=== PATIENT | female | born 1960 | race Caucasian/White ===

== ENCOUNTER → 2022-10-19 | Outpatient (CLI) | payer BC ==
--- NOTE | 2022-10-19 13:36 | XR ---
EXAMINATION TYPE: XR cervical spine comp DATE OF EXAM: 10/19/2022 TECHNIQUE: Frontal, lateral, oblique, and open mouth view of the cervical spine are obtained. HISTORY: H53.462 COMPARISON: None FINDINGS: The cervical spine is visualized in its entirety from C1 thru the top of T1 level, it is s traightened in alignment without evidence of acute fracture or dislocation. The pre-vertebral soft t issue appears within normal limits. The C1-C2 articulation is within normal limits on the open mouth view. Vertebral body heights are maintained. Moderate to advanced disc space narrowing with endplate sclerosis at C6-C7 level. Mild disc space narrowing C4-C5 level. Mild to Moderate disc space narrow ing at C5-C6 level. The oblique images are within normal limits. Overlying soft tissue is unremarkabl e. IMPRESSION: As above.
== END | disposition home or self-care (01) ==
LOC: RADXRMAIN 13:08
PROVIDERS: ATTEND Family Medicine
DX: M50.321 Other cervical disc degeneration at C4-C5 level (principal); R20.2 Paresthesia of skin
CPT/HCPCS: 72050

== ENCOUNTER → 2023-04-02 | Outpatient (CLI) | payer BC ==
--- NOTE | 2023-04-04 21:27 | MR ---
EXAMINATION TYPE: MR cervical spine wo con DATE OF EXAM: 04/02/2023 8:02 PM CLINICAL INDICATION:Female, 63 years old with history of M50.321 M50.322 M50.323; PHH, Neck pain an d numbness that radiates down right arm. COMPARISON: 10/28/2016. TECHNIQUE: Multi planar, multi sequence imaging was performed utilizing: T1-weighted, T2-weighted, an d turbo inversion recovery imaging of the cervical spine. IV Contrast: (none if empty) FINDINGS: Alignment: The cervical vertebral bodies have preserved heights. Alignment is within normal limits gi rony patient positioning. Bones: Scattered Modic endplate changes with osteophytes and disc space narrowing. Multilevel degener ative disc disease is noted and most pronounced at the C5-C7 vertebral levels. Cord: The spinal cord is unremarkable with regards to their signal intensity and morphology. Discs: Multilevel disc desiccation is present. C2-C3: No significant disc pathology. The spinal canal is patent. Bilateral facet and uncovertebral joint arthropathy are present with mild bilateral neural foraminal stenosis. C3-C4: A disc osteophyte complex is present which minimally narrows the ventral subarachnoid space. Bilateral facet and uncovertebral joint arthropathy are present with moderate right and moderate sev ere left neural foraminal stenosis. C4-C5: No significant disc pathology. The spinal canal is patent. Bilateral facet and uncovertebral joint arthropathy are present with mild to moderate right and moderate left neural foraminal stenosis . C5-C6: No significant disc pathology. The spinal canal is patent. Bilateral facet and uncovertebral joint arthropathy are present with moderate bilateral neural foraminal stenosis. C6-C7: A disc osteophyte complex is present with moderate spinal canal stenosis. Bilateral facet and uncovertebral joint arthropathy are present with moderate to severe bilateral neural foraminal steno sis. C7-T1: No significant disc pathology. The spinal canal is patent. No neural foraminal stenosis. Other: None. IMPRESSION: C6-C7 moderate spinal canal and moderate to severe bilateral neural foraminal stenosis. Cord signal i s maintained.
--- NOTE | 2023-04-05 10:01 | MR ---
EXAMINATION TYPE: MR cervical spine wo con DATE OF EXAM: 04/02/2023 8:02 PM CLINICAL INDICATION:Female, 63 years old with history of M50.321 M50.322 M50.323; PHH, Neck pain and numbness that radiates down right arm. COMPARISON: Radiographs 10/19/2022. TECHNIQUE: Multi planar, multi sequence imaging was performed utilizing: T1- weighted, T2-weighted, and turbo inversion recovery imaging of the cervical spine. IV Contrast: cc (none if empty) FINDINGS: Alignment: The cervical vertebral bodies have preserved heights. Alignment is within normal limits given patient positioning. Bones: Scattered Modic endplate changes with osteophytes and disc space narrowing. Multilevel degenerative disc disease is noted and most pronounced at the C5-C7 vertebral levels. Cord: The spinal cord is unremarkable with regards to their signal intensity and morphology. Discs: Multilevel disc desiccation is present. C2-C3: No significant disc pathology. The spinal canal is patent. No neural foraminal stenosis. C3-C4: No significant disc pathology. The spinal canal is patent. No neural foraminal stenosis. C4-C5: No significant disc pathology. The spinal canal is patent. Bilateral facet and uncovertebral joint arthropathy are present with mild right neural foraminal stenosis. The left neural foramen is patent. C5-C6: No significant disc pathology. The spinal canal is patent. Bilateral facet and uncovertebral joint arthropathy are present with mild bilateral neural foraminal stenosis. C6-C7: A disc osteophyte complex is present with mild spinal canal stenosis. Bilateral facet and uncovertebral joint arthropathy are present with mild bilateral neural foraminal stenosis. C7-T1: No significant disc pathology. The spinal canal is patent. No neural foraminal stenosis. Other: None. IMPRESSION: C6-C7 mild to moderate spinal canal stenosis. Mild bilateral neural foraminal stenosis also at this level. MTDD
== END | disposition home or self-care (01) ==
LOC: RADMRIMAIN 19:25
PROVIDERS: ATTEND Family Medicine
DX: M50.121 Cervical disc disorder at C4-C5 level with radiculopathy (principal); M50.122 Cervical disc disorder at C5-C6 level with radiculopathy; M50.123 Cervical disc disorder at C6-C7 level with radiculopathy; M48.02 Spinal stenosis, cervical region; M99.71 Connective tissue and disc stenosis of intervertebral foramina of cervical region
CPT/HCPCS: 72141

== ENCOUNTER → 2023-07-07 | Outpatient (CLI) | payer BC ==
[2023-07-07 14:35] VITALS: BP 169/102; PULSE 74; RESP 16; TEMP 98.2
--- NOTE | 2023-07-07 14:36 | P.PAINPG ---
PQRS Measure Charge Sheet Comment: HISTORY OF PRESENT ILLNESS: A 63yr old female as a referral from Dr Jenkins presents today w severe and chronic neck pain x 2 yrs secondary to stenosis, DDD, spondylosis and facet arthropathy without myelopathy for evaluation. Pt states pain level is provoked at 6 /10 in intensity, constant, localized in the lower cervical spine, predominantly axial, crushing in character w occasional shooting pain towards the RUE. Pain is provoked by hyperextension. Pain is alleviated by PT x 6 wks in Dec 2022, chiropractic treatments semi monthly x 3 mo which ended in Dec 2022, physician guided home exercise/ stretching regimen daily since Dec 2022, ice, medications (Mobic, Aleve), repositioning and rest. Cervical disability score at 23. PMH: OA, Anxiety, Hyperlipidemia PSH: Denies SH: Negative x3 FH: Non contributory All: See list Meds: See list REVIEW OF ORGAN SYSTEMS: CONSTITUTIONAL: No fevers or chills. No recent weight loss. NEUROLOGICAL: + numbness and tingling along the distal extremities. No seizure disorders or headaches. MUSCULOSKELETAL: + pain PSYCHIATRIC: Denies current depression or suicidal thoughts. Physical Examinations : Constitutional : Cooperative , not in acute distress . Neurologic : Cranial nerve II to XII intact. No focal neurological deficits. Psychiatric : alert & oriented x 3. Matching mood & appropriate affect. Judgment & insight intact. Musculoskeletal : Cervical Spine Motor strength in the deltoid and biceps: Normal right side. Normal Left side Motor strength biceps and the wrist extensors: Normal right side . Normal left side Motor strength in the triceps muscle: Normal right side. Normal left side Deep tendon reflexes: Normal at the biceps. Normal at Brachioradialis. Normal at triceps Vertebral body tenderness to deep palpation over C6 Cervical facet loading test: positive bilaterally Spurling test: positive bilaterally Neck distraction test: positive bilaterally Waleska sign: positive bilaterally Lumbar spine Motor strength lower extremities ,thigh and legs 5/5 Right side , 5/5 Left side Deep tendon reflexes : Normal Knee Jerk. Normal Ankle Jerk Vertebral body tenderness over Erwin Test positive Lumbar facet Loading Test: positive Right / positive Left Range of motion of the lumbar spine Flexion 30 degrees, extension 10 degrees Straight Leg Raise test: Left/ Right positive at degrees Israel test: positive right / positive left. Severe tenderness over the Sacroiliac joint on the Right / Left sides Gaenslen test: positive bilaterally Seated flexion test: positive bilaterally. Sacral spine : Severe tenderness over the Sacroiliac joint: right side / left side Range of motion: Flexion of the lumbar spine <60 degrees Range of motion: Extension of the lumbar spine <20 degrees Gaenslen's Test positive Israel test: positive right side / left side Thigh Thrust Test Sacral Thrust Test Imaging: MRI noncontrast of the cervical spine from 04/05/23 reviewed Assessment/ Plan : Cervical stenosis Recommendation of FRACISCO C6C7 #1. May need a series of injections for optimal pain relief. Risks, benefits of procedure discussed and patient verbalized understanding. Admits to anti- coagulant use or medical history of diabetes. Protocol for discontinuation/ continuation of medications felix procedure discussed. Minimal anesthesia provided, if clinically indicated, consisting of Versed and Fentanyl. All questions answered. I have spent greater than 30 minutes on patient care today. Dr Nicholson was available by phone for the evaluation of this patient. The time was used to review the medical records including relevant urine studies and Prescription history (MAPs), review of the available imaging, evaluation and examination of the patient, coordination of care with the medical staff and if applicable referring physicians, as well as creation of the medical record Home Medications: Ambulatory Orders Atorvastatin [Lipitor] 80 mg PO DAILY 07/07/23 Meloxicam [Mobic] 15 mg PO 07/07/23 diazePAM [Valium] 5 mg PO DAILY PRN 1 Days #2 tab 07/07/23 Controlled Substance Measures - Controlled Substance Measures Is patient prescribed a controlled substance at discharge?: No
== END ==
LOC: PNWHC3 13:23
PROVIDERS: ATTEND Specialist
DX: M50.323 Other cervical disc degeneration at C6-C7 level (principal); M48.03 Spinal stenosis, cervicothoracic region; M25.511 Pain in right shoulder; R20.2 Paresthesia of skin; M19.90 Unspecified osteoarthritis, unspecified site; F41.9 Anxiety disorder, unspecified; E78.5 Hyperlipidemia, unspecified
CPT/HCPCS: 99211

== ENCOUNTER 2023-08-03 12:41 | Day surgery (SDC) | payer BC ==
[2023-08-03 14:04] VITALS: TEMP 98.1
[2023-08-03] MEDS ORDERED: DEXAMETHASONE SOD PHOSPHATE 10 MG/ML 1 ML VIAL ONE (14:49)
[2023-08-03] MEDS ORDERED: IOPAMIDOL M200 10 ML VIAL ONE (14:49)
[2023-08-03] MEDS ORDERED: diphenhydrAMINE 25 MG CAP PO STA (15:06)
[2023-08-03 15:11] VITALS: RESP 20
[2023-08-03 15:43] VITALS: BP 160/93
[2023-08-03 15:44] VITALS: PULSE 75
--- NOTE | 2023-08-04 10:32 | P.PCN ---
Date of Procedure: 08/03/23 Procedure(s) Performed: . PROCEDURE 1. Cervical epidural steroid injection under fluoroscopic guidance, C6-7 (fluoroscopy images available in the radiology department ) 2. Cervical epidurogram. PREOPERATIVE DIAGNOSIS: 1- Cervical Degenerative Disc Diseases 2- Cervical radiculopathy., 3-cervical spondylosis with cervical Facet arthropathy without myelopathy.4-cervical spinal stenosis POSTOPERATIVE DIAGNOSIS: : 1- Cervical Degenerative Disc Diseases , 2- Cervical radiculopathy. 3-,cervical spondylosis with cervical Facet arthropathy without myelopathy. 4-cervical spinal stenosis ANESTHESIA: Local anesthesia with lidocaine 1% 3 ml only EBL 0 PROCEDURE INDICATION: The patient with neck pain and radiculitis unresponsive to conservative treatment consents for procedure. PROCEDURE DESCRIPTION / TECHNIQUE: The patient was seen and identified in the preoperative area. Risks, benefits, complications, including but not limited to infections ,bleeding , allergic reactions to the medications ,and not complete pain releife, and alternatives were discussed with the patient, the patient agreed to proceed with the procedure and signed the consent. Patient was taken to the OR and time out was completed. The patient was placed in the prone position on the procedure table. A pillow w as placed under the patients chest to increase the cervical interlaminar space. The cervical area was prepped and draped in the usual sterile fashion. Vital signs were closely monitored during the procedure. Using anterior-posterior fluoroscopy, the C6-7 interlaminar space was identified and the skin over this site was marked and then infiltrated with 1% lidocaine subcutaneously. Subsequently, a 20-gauge 3-1/2-inch Tuohy epidural needle was inserted and advanced toward the epidural space by means of the ``hanging-drop technique and guided by AP and lateral fluoroscopy. The correct needle position in the epidural space was verified with the injection of 2 mL of the water soluble contrast dye Isovue-200 and observing an excellent epidurogram with the epidural spread of the dye, after negative aspiration for blood and CSF and in the absence of paresthesias. then, mixture containing 20 mg Dexamethasone and 2 ml of preservative-free normal saline injected and a washout of epidurogram was seen. Needle was withdrawn intact, skin was cleansed, and bandages were applied. Complications= none. Disposition= patient was placed in supine position and transferred to the recovery room area in stable condition and there was no evidence of upper or lower extremity motor or sensory deficit after the procedure patient was discharged from recovery room after discharge criteria met and home discharge instructions was given by the staff and patient will follow with the pain clinic in 2-4 weeks
--- NOTE | 2023-08-04 12:11 | FL ---
EXAMINATION TYPE: FL guided pain mgmt statistic DATE OF EXAM: 08/03/2023 FLUOROSCOPY Fluoroscopy time of 3.4 seconds was used during cervical epidural steroid injection. 2 image/s docum ent/s the procedure. [id number] Gycm2 DAP
== END 2023-08-03 15:35 | disposition home or self-care (01) ==
LOC: ORPAIN 12:41
PROVIDERS: ATTEND Specialist
DX: M50.123 Cervical disc disorder at C6-C7 level with radiculopathy (principal); M47.22 Other spondylosis with radiculopathy, cervical region; M48.02 Spinal stenosis, cervical region
CPT/HCPCS: 62321

== ENCOUNTER → 2023-08-25 | Outpatient (CLI) | payer BC ==
--- NOTE | 2023-08-25 14:34 | P.PAINPG ---
PQRS Measure Charge Sheet Comment: HISTORY OF PRESENT ILLNESS: A 63 yr old female presents today w severe and chronic neck pain x 2 yrs secondary to stenosis, DDD, spondylosis and facet arthropathy without myelopathy for evaluation s/p MAL C6C7 #1. Pt states she experienced 60 % pain relief x 3 wks s/p procedure. Pt states pain level is provoked at 6 /10 in intensity, constant, localized in the lower cervical spine, predominantly axial, crushing in character w occasional shooting pain towards the RUE. Pain is provoked by hyperextension. Pain is alleviated by PT x 6 wks in Dec 2022, chiropractic treatments semi monthly x 3 mo which ended in Dec 2022, physician guided home exercise/ stretching regimen daily since Dec 2022, ice, medications, repositioning and rest. Cervical disability score at 21. Interventional procedures include MAL C6C7 x1 Medications include Mobic, Aleve REVIEW OF ORGAN SYSTEMS: CONSTITUTIONAL: No fevers or chills. No recent weight loss. NEUROLOGICAL: + numbness and tingling along the distal extremities. No seizure disorders or headaches. MUSCULOSKELETAL: + pain PSYCHIATRIC: Denies current depression or suicidal thoughts. Physical Examinations : Constitutional : Cooperative , not in acute distress . Neurologic : Cranial nerve II to XII intact. No focal neurological deficits. Psychiatric : alert & oriented x 3. Matching mood & appropriate affect. Judgment & insight intact. Musculoskeletal : Cervical Spine Motor strength in the deltoid and biceps: Normal right side. Normal Left side Motor strength biceps and the wrist extensors: Normal right side . Normal left side Motor strength in the triceps muscle: Normal right side. Normal left side Deep tendon reflexes: Normal at the biceps. Normal at Brachioradialis. Normal at triceps Vertebral body tenderness to deep palpation over C6 Cervical facet loading test: positive bilaterally Spurling test: positive bilaterally over C6-C7 BL R> L Neck distraction test: positive bilaterally Waleska sign: positive bilaterally Lumbar spine Motor strength lower extremities ,thigh and legs 5/5 Right side , 5/5 Left side Deep tendon reflexes : Normal Knee Jerk. Normal Ankle Jerk Vertebral body tenderness over Erwin Test positive Lumbar facet Loading Test: positive Right / positive Left Range of motion of the lumbar spine Flexion 30 degrees, extension 10 degrees Straight Leg Raise test: Left/ Right positive at degrees Israel test: positive right / positive left. Severe tenderness over the Sacroiliac joint on the Right / Left sides Gaenslen test: positive bilaterally Seated flexion test: positive bilaterally. Sacral spine : Severe tenderness over the Sacroiliac joint: right side / left side Range of motion: Flexion of the lumbar spine <60 degrees Range of motion: Extension of the lumbar spine <20 degrees Gaenslen's Test positive Israel test: positive right side / left side Thigh Thrust Test Sacral Thrust Test Imaging: MRI noncontrast of the cervical spine from 04/05/23 reviewed Assessment/ Plan : Cervical stenosis Recommendation of MAL C6-C7 #2. May need a series of injections for optimal pain relief. Risks, benefits of procedure discussed and patient verbalized understanding. Admits to anti- coagulant use or medical history of diabetes. Protocol for discontinuation/ continuation of medications felix procedure discuss ed. Minimal anesthesia provided, if clinically indicated, consisting of Versed and Fentanyl. All questions answered. I have spent greater than 30 minutes on patient care today. Dr Nicholson was available by phone for the evaluation of this patient. The time was used to review the medical records including relevant urine studies and Prescription history (MAPs), review of the available imaging, evaluation and examination of the patient, coordination of care with the medical staff and if applicable referring physicians, as well as creation of the medical record PQRS Narrative: Hx Alcohol Use (MH) Yes Home Medications: Ambulatory Orders Atorvastatin [Lipitor] 80 mg PO DAILY 07/07/23 Meloxicam [Mobic] 15 mg PO DAILY 07/07/23 diazePAM [Valium] 5 mg PO DAILY PRN 1 Days #2 tab 07/07/23 Controlled Substance Measures - Controlled Substance Measures Is patient prescribed a controlled substance at discharge?: No
[2023-08-25 15:05] VITALS: BP 153/90; PULSE 99; RESP 15; TEMP 97.6
== END ==
LOC: PNWHC3 13:51
PROVIDERS: ATTEND Specialist
DX: M48.02 Spinal stenosis, cervical region (principal)
CPT/HCPCS: 99211

== ENCOUNTER 2023-09-30 12:45 | Day surgery (SDC) | payer BC ==
[2023-09-28 13:51] VITALS: BMI 23.3
[~2023-09-30 12:45] MED LIST: LACTATED RINGERS 1,000 ML IV SCH
[2023-09-30 13:40] VITALS: RESP 16; TEMP 97
[2023-09-30] MEDS ORDERED: DEXAMETHASONE SOD PHOSPHATE 10 MG/ML 1 ML VIAL ONE (14:26)
[2023-09-30] MEDS ORDERED: IOPAMIDOL M200 10 ML VIAL ONE (14:26)
--- NOTE | 2023-09-30 14:32 | P.PCN ---
Date of Procedure: 09/30/23 Procedure(s) Performed: PROCEDURE 1. Cervical epidural steroid injection under fluoroscopic guidance, C6-7 (fluoroscopy images available in the radiology department ) 2. Cervical epidurogram. PREOPERATIVE DIAGNOSIS: 1- Cervical Degenerative Disc Diseases 2- Cervical radiculopathy., 3-cervical spondylosis with cervical Facet arthropathy without myelopathy.4-cervical spinal stenosis POSTOPERATIVE DIAGNOSIS: : 1- Cervical Degenerative Disc Diseases , 2- Cervical radiculopathy. 3-,cervical spondylosis with cervical Facet arthropathy without myelopathy. 4-cervical spinal stenosis ANESTHESIA: Local anesthesia with lidocaine 1% 3 ml only EBL 0 PROCEDURE INDICATION: The patient with neck pain and radiculitis unresponsive to conservative treatment consents for procedure. PROCEDURE DESCRIPTION / TECHNIQUE: The patient was seen and identified in the preoperative area. Risks, benefits, complications, including but not limited to infections ,bleeding , allergic reactions to the medications ,and not complete pain releife, and alternatives were discussed with the patient, the patient agreed to proceed with the procedure and signed the consent. Patient was taken to the OR and time out was completed. The patient was placed in the prone position on the procedure table. A pillow was placed under the patients chest to increase the cervical interlaminar space. The cervical area was prepped and draped in the usual sterile fashion. Vital signs were closely monitored during the procedure. Using anterior-posterior fluoroscopy, the C6-7 interlaminar space was identified and the skin over this site was marked and then infiltrated with 1% lidocaine subcutaneously. Subsequently, a 20-gauge 3-1/2-inch Tuohy epidural needle was inserted and advanced toward the epidural space by means of the ``hanging-drop technique and guided by AP and lateral fluoroscopy. The correct needle position in the epidural space was verified with the injection of 2 mL of the water soluble contrast dye Isovue-200 and observing an excellent epidurogram with the epidural spread of the dye, after negative aspiration for blood and CSF and in the absence of paresthesias. then, mixture containing 20 mg Dexamethasone and 2 ml of preservative-free normal saline injected and a washout of epidurogram was seen. Needle was withdrawn intact, skin was cleansed, and bandages were applied. Complications= none. Disposition= patient was placed in supine position and transferred to the recovery room area in stable condition and there was no evidence of upper or lower extremity motor or sensory deficit after the procedure patient was discharged from recovery room after discharge criteria met and home discharge instructions was given by the staff and patient will follow with the pain clinic in 2-4 weeks
--- NOTE | 2023-09-30 15:01 | FL ---
Fluoroscopy History: FRACISCO fracisco 4 sec DAP .[id number] mGym2
[2023-09-30 15:03] VITALS: BP 113/69; PULSE 79
== END 2023-09-30 15:06 | disposition home or self-care (01) ==
LOC: ORPAIN 12:45
PROVIDERS: ATTEND Specialist
DX: M50.123 Cervical disc disorder at C6-C7 level with radiculopathy (principal); M47.22 Other spondylosis with radiculopathy, cervical region; M48.02 Spinal stenosis, cervical region
CPT/HCPCS: 62321; J1100; Q9966

== ENCOUNTER → 2023-10-20 | Outpatient (CLI) | payer BC ==
--- NOTE | 2023-10-20 13:39 | P.PAINPG ---
PQRS Measure Charge Sheet Comment: HISTORY OF PRESENT ILLNESS: A 63 yr old female presents today w severe and chronic neck pain x 2 yrs secondary to stenosis, DDD, spondylosis and facet arthropathy without myelopathy for evaluation s/p MAL C6C7 #2. Pt states she experienced % pain relief x 3 wks s/p procedure. Pt states pain level is provoked at 7 /10 in intensity, constant, localized in the lower cervical spine, predominantly axial, pulling in character w occasional shooting pain towards the RUE. Pain is provoked by hyperextension. Pain is alleviated by PT x 6 wks in Dec 2022, chiropractic treatments semi monthly x 3 mo which ended in Dec 2022, physician guided home exercise/ stretching regimen daily since Dec 2022, ice, medications, repositioning and rest. Cervical disability score at 21. Interventional procedures include MAL C6C7 x2 Medications include Mobic, Aleve REVIEW OF ORGAN SYSTEMS: CONSTITUTIONAL: No fevers or chills. No recent weight loss. NEUROLOGICAL: + numbness and tingling along the distal extremities. No seizure disorders or headaches. MUSCULOSKELETAL: + pain PSYCHIATRIC: Denies current depression or suicidal thoughts. Physical Examinations : Constitutional : Cooperative , not in acute distress . Neurologic : Cranial nerve II to XII intact. No focal neurological deficits. Psychiatric : alert & oriented x 3. Matching mood & appropriate affect. Judgment & insight intact. Musculoskeletal : Cervical Spine Motor strength in the deltoid and biceps: Normal right side. Normal Left side Motor strength biceps and the wrist extensors: Normal right side . Normal left side Motor strength in the triceps muscle: Normal right side. Normal left side Deep tendon reflexes: Normal at the biceps. Normal at Brachioradialis. Normal at triceps Vertebral body tenderness to deep palpation Cervical facet loading test: positive R C4-C5, C5-C6 Spurling test: positive bilaterally over Neck distraction test: positive bilaterally Waleska sign: positive bilaterally Lumbar spine Motor strength lower extremities ,thigh and legs 5/5 Right side , 5/5 Left side Deep tendon reflexes : Normal Knee Jerk. Normal Ankle Jerk Vertebral body tenderness over Erwin Test positive Lumbar facet Loading Test: positive Right / positive Left Range of motion of the lumbar spine Flexion 30 degrees, extension 10 degrees Straight Leg Raise test: Left/ Right positive at degrees Israel test: positive right / positive left. Severe tenderness over the Sacroiliac joint on the Right / Left sides Gaenslen test: positive bilaterally Seated flexion test: positive bilaterally. Sacral spine : Severe tenderness over the Sacroiliac joint: right side / left side Range of motion: Flexion of the lumbar spine <60 degrees Range of motion: Extension of the lumbar spine <20 degrees Gaenslen's Test positive Israel test: positive right side / left side Thigh Thrust Test Sacral Thrust Test Imaging: MRI noncontrast of the cervical spine from 04/05/23 reviewed Assessment/ Plan : Cervical stenosis Recommendation of R MBB C4-C6 #1. May need a series of injections, up until RFA, for optimal pain relief. Risks, benefits of procedure discussed and pat ient verbalized understanding. Admits to anti- coagulant use or medical history of diabetes. Protocol for discontinuation/ continuation of medications felix procedure discussed. Minimal anesthesia provided, if clinically indicated, consisting of Versed and Fentanyl. All questions answered. I have spent greater than 30 minutes on patient care today. Dr Nicholson was available by phone for the evaluation of this patient. The time was used to review the medical records including relevant urine studies and Prescription history (MAPs), review of the available imaging, evaluation and examination of the patient, coordination of care with the medical staff and if applicable referring physicians, as well as creation of the medical record PQRS Narrative: Hx Alcohol Use (MH) Yes Home Medications: Ambulatory Orders Atorvastatin [Lipitor] 80 mg PO DAILY 07/07/23 Meloxicam [Mobic] 15 mg PO DAILY 07/07/23 diazePAM [Valium] 5 mg PO DAILY PRN 1 Days #2 tab 09/22/23 Controlled Substance Measures - Controlled Substance Measures Is patient prescribed a controlled substance at discharge?: No
[2023-10-20 14:17] VITALS: BP 147/91; PULSE 88; RESP 16; TEMP 97.8
== END ==
LOC: PNWHC3 12:41
PROVIDERS: ATTEND Specialist
DX: M48.02 Spinal stenosis, cervical region (principal); M50.321 Other cervical disc degeneration at C4-C5 level; M50.322 Other cervical disc degeneration at C5-C6 level; G89.29 Other chronic pain; M47.812 Spondylosis without myelopathy or radiculopathy, cervical region
CPT/HCPCS: 99211

== ENCOUNTER 2023-11-12 09:38 | Day surgery (SDC) | payer BC ==
[2023-11-12] MEDS: LACTATED RINGERS 1,000 ML IV SCH (09:51)
[2023-11-12 10:04] VITALS: RESP 18; TEMP 98.3
[2023-11-12] MEDS ORDERED: fentaNYL (PF) 50 MCG/ML 2 ML AMP ONE (10:08)
[2023-11-12] MEDS ORDERED: MIDAZOLAM 2 MG/2 ML VIAL ONE (10:08)
[2023-11-12] MEDS ORDERED: ROPIVACAINE 5MG/ML 20ML VIAL ONE (10:16)
--- NOTE | 2023-11-12 10:25 | P.PCN ---
Date of Procedure: 11/12/23 Procedure(s) Performed: PREOPERATIVE DIAGNOSIS: 1-Cervical Spondylosis with Facet Arthropathy.without myelopathy. 2-cervical degenerative disc disease POSTOPERATIVE DIAGNOSIS:1-cervical spondylosis with facet arthropathy without myelopathy. 2-cervical degenerative disc disease PROCEDURES: Diagnostic Right C4 , C5 , and C6 medial branch blocks, with fluoroscopic guidance (fluoroscopy images available in radiology department ) ( to target the facet joint at Right C4- 5 , C5- 6 )#1st ANESTHESIA: Monitored anesthesia care as per anesthesia department ,moderate sedation with Versed 2 mg , and fentanyl 50 micrograms EBL: Minimal PROCEDURE INDICATION: The patient with neck pain secondary to cervical arthropathy unresponsive to more conservative treatments. PROCEDURE DESCRIPTION / TECHNIQUE: The patient was seen and identified in the preoperative area. Risks, benefits, complications, and alternatives were discussed with the patient, the patient agreed to proceed with the procedure and signed the consent. IV was started. Vital signs remained stable throughout the procedure. Patient was taken to the OR and time out was completed. The patient was placed in the Lateral position on the procedure table. The cervical area was prepped and draped in the usual sterile fashion. Critical pause was taken. Vital signs were closely monitored during the procedure. Conscious sedation was used during the procedure to decrease patients anxiety. Using cross-table lateral fluoroscopy, the centroid of the trapezoid of right C4 , C5 and C6, was identified, marked, and localized with 1% lidocaine 1 ml at each level for skin and Sub Q infiltrations . Subsequently, a 22 G 3 spinal needle was advanced guided by fluoroscopy to the centroid of the trapezoid of Right C4 , C5, C6 . Hobart tip position was confirmed at the centroid of the trapezoids of Right C4 , C5 ,C6 with anteroposterior fluoroscopy. Subsequently, 2 ml of preservative-free Ropivacaine 0.5% and half ml of the was injected after negative aspiration for blood and CSF. Hobart was then rem giacomo intact . COMPLICATIONS: No acute complications. DISPOSITION / PLANS: The patient was placed in a supine position and transferred to the recovery area in a stable condition for observation and was discharged from the recovery room after meeting discharge criteria. Home discharge instructions given to the patient by the staff. The patient was reexamined prior to discharge. The patient will schedule a follow up in the clinic in 2-4 weeks.
[2023-11-12] MEDS: IV FLUID CONTINUATION 800 ML IV ONE (10:26)
[2023-11-12 11:02] VITALS: BP 130/71; PULSE 78
--- NOTE | 2023-11-12 11:17 | FL ---
EXAMINATION TYPE: FL guided pain mgmt statistic Intraoperative/procedural fluoroscopic services were provided. Total fluoroscopy time is 4.5 seconds with a total of 2 submitted images to PACS. Please se e the operative/procedural note for further details. DAP: [id number] mGym2
== END 2023-11-12 11:03 | disposition home or self-care (01) ==
LOC: ORPAIN 09:38
PROVIDERS: ATTEND Specialist
DX: M47.812 Spondylosis without myelopathy or radiculopathy, cervical region (principal); M50.322 Other cervical disc degeneration at C5-C6 level
CPT/HCPCS: 64490; 64491; 99152; J2250; J3010; J2795

== ENCOUNTER → 2023-12-01 | Outpatient (CLI) | payer BC ==
[2023-12-01 13:13] VITALS: BP 154/98; PULSE 81; RESP 16
--- NOTE | 2023-12-01 14:55 | P.PAINPG ---
PQRS Measure Charge Sheet Comment: HISTORY OF PRESENT ILLNESS: A 63 yr old female presents today w severe and chronic neck pain x 2 yrs secondary to stenosis, DDD, spondylosis and facet arthropathy without myelopathy for evaluation s/p BL MBB C4-C6 #1. Pt states she experienced 0 % pain relief s/p procedure. Pt states pain level is provoked at 8 /10 in intensity, constant, localized in the lower cervical spine, predominantly axial, pulling in character w occasional shooting pain towards the RUE. Pain is provoked by hyperextension. Pain is alleviated by PT x 6 wks in Dec 2022, chiropractic treatments semi monthly x 3 mo which ended in Dec 2022, physician guided home exercise/ stretching regimen daily since Dec 2022, ice, medications, repositioning and rest. Cervical disability score at 22. Interventional procedures include MAL C6C7 x2, R MBB C4-C6 x1 Medications include Mobic, Aleve REVIEW OF ORGAN SYSTEMS: CONSTITUTIONAL: No fevers or chills. No recent weight loss. NEUROLOGICAL: + numbness and tingling along the distal extremities. No seizure disorders or headaches. MUSCULOSKELETAL: + pain PSYCHIATRIC: Denies current depression or suicidal thoughts. Physical Examinations : Constitutional : Cooperative , not in acute distress . Neurologic : Cranial nerve II to XII intact. No focal neurological deficits. Psychiatric : alert & oriented x 3. Matching mood & appropriate affect. Judgment & insight intact. Musculoskeletal : Cervical Spine Motor strength in the deltoid and biceps: Normal right side. Normal Left side Motor strength biceps and the wrist extensors: Normal right side . Normal left side Motor strength in the triceps muscle: Normal right side. Normal left side Deep tendon reflexes: Normal at the biceps. Normal at Brachioradialis. Normal at triceps Vertebral body tenderness to deep palpation over C6 Cervical facet loading test: positive R C4-C5, C5-C6 Spurling test: positive bilaterally over Neck distraction test: positive bilaterally Waleska sign: positive bilaterally Lumbar spine Motor strength lower extremities ,thigh and legs 5/5 Right side , 5/5 Left side Deep tendon reflexes : Normal Knee Jerk. Normal Ankle Jerk Vertebral body tenderness over Erwin Test positive Lumbar facet Loading Test: positive Right / positive Left Range of motion of the lumbar spine Flexion 30 degrees, extension 10 degrees Straight Leg Raise test: Left/ Right positive at degrees Israel test: positive right / positive left. Severe tenderness over the Sacroiliac joint on the Right / Left sides Gaenslen test: positive bilaterally Seated flexion test: positive bilaterally. Sacral spine : Severe tenderness over the Sacroiliac joint: right side / left side Range of motion: Flexion of the lumbar spine <60 degrees Range of motion: Extension of the lumbar spine <20 degrees Gaenslen's Test positive Israel test: positive right side / left side Thigh Thrust Test Sacral Thrust Test Imaging: MRI noncontrast of the cervical spine from 04/05/23 reviewed Assessment/ Plan : Cervical stenosis Recommendation of follow up w Dr Cagle to explore additional treatment options. All questions answered. I have spent greater than 30 minutes on patient care today. Dr Nicholson was available by phone for the evaluation of this patient. The time was used to review the medical records including relevant urine studies and Prescription history (MAPs), review of the available imaging, evaluation and examination of the patient, coordination of care with the medical staff and if applicable referring physicians, as well as creation of the medical record PQRS Narrative: Hx Alcohol Use (MH) Yes Home Medications: Ambulatory Orders Atorvastatin [Lipitor] 80 mg PO DAILY 07/07/23 Meloxicam [Mobic] 15 mg PO DAILY 07/07/23 Latanoprost Ophth [Xalatan 0.005%] 1 drops BOTH EYES HS 11/10/23 Trazodone(Unknown Dose) 1 tab PO HS 11/10/23 Controlled Substance Measures - Controlled Substance Measures Is patient prescribed a controlled substance at discharge?: No
== END ==
LOC: PNWHC3 12:52
PROVIDERS: ATTEND Specialist
DX: M48.02 Spinal stenosis, cervical region (principal)
CPT/HCPCS: 99211

== ENCOUNTER → 2024-03-22 | Outpatient (CLI) | payer BC | END | disposition home or self-care (01) | LOC: LABPAT 14:52 | PROVIDERS: ATTEND Orthopaedic Surgery | DX: Z22.322 Carrier or suspected carrier of Methicillin resistant Staphylococcus aureus | CPT/HCPCS: 87070 ==

== ENCOUNTER 2024-03-31 05:39 | Day surgery (SDC) | payer BC ==
--- NOTE | 2024-03-30 16:48 | P.HPOR ---
History of Present Illness H&P Date: 03/22/24 .D:Date: 03/22/24 : 04:43pm .T:Title: *PRE OPERATIVE ASSESSMENT Spine Surgery Clinical and Risk Review Sonia is a 64 yo female presenting for evaluation of UE radiculopathy, weakness, pain, neck pain arm pain . It was my pleasure to have seen and examined Sonia. In our visit today we have had a chance to go over subjective complaints, physical examination findings and treatments including the natural course history without intervention and various interventional options. The patients imaging demonstrates C5-7 spondylosis severe, wtih severe disc collapse, central and b/l foraminal stenosis as well as flattened cervical lordosis. Anterior and posterior osteophyte formation noted contributing as well to stenotic features that are moderate to seveer. On physical exam, Sonia demonstrates Severe RUE radiculopathy, weakness, neck pain, debility related to this unable to performe her ADLs without singinificant pain and issues. I have explained to the patient that as their condition progresses it will cause further neurological deficits and eventual paralysis. Based on the patients imaging, physical exam, and the rapid progression and disabling nature of their symptoms, at this time I recommend surgery in the form or a: C5-7 ANTERIOR CERVICAL DISCECTOMY AND FUSION. I discussed the risk and benefits of this procedure at length with Sonia. The patient agreed to considered pursuing the procedure abovementioned. Prior to surgery, she should follow up with her PCP (Cardio, ID, IM etc) for clearance. Questions were invited and answered, and the patient wishes to proceed as outlined below. IMPRESSION: 1. CERVICAL SPONDYLOSIS WITH RADICULOPATHY C3-6 2. CERVICAL DISC DISORDER WITH RADICULOPATHY 3. UPPER EXTREMITY WEAKNESS 4. UPPER EXTREMITY RADICULOPATHY 5. UPPER EXTREMITY PARESTHESIAS 6. MYELOPATHY Currently, I am recommendin.C5-7 ANTERIOR CERVICAL DISCECTOMY AND FUSION 2.SURGICAL CLEARANCES OBTAINED 3.Review of surgical risks and benefits as well as an educational packet on the proposed surgical procedure. Risks: All surgical procedures come with inherent risks, including those related to positioning, anesthesia, intraoperative findings, and postoperative complications. It is important to understand that surgery does not come with any guarantee of a successful outcome as complications and adverse events are always possible. The patient was given a handout in office today discussing the surgical procedure and risks associated with the intervention, both of which were discussed with the patient. These risks include but are not limited to the following: * Experiencing same, different or even worse symptoms in back, neck, arms, or legs compared to before surgery. Requiring further surgery or other forms of treatment presently or at some time in the future at same or other levels of the intended spine surgery. On an extreme but fortunately relatively rare basis severe complication such as blindness, stroke, heart attack, temporary and/or permanent nerve injury, paralysis, coma, or may occur, sometimes without known explanation. Surgical complications may include but are not limited to risk of infection, fluid accumulation in the surgical dissection site, including a seroma or hematoma, that requires additional surgery, wound drainage, bleeding, new numbness or weakness, vision changes/loss, spinal fluid leakage, non-healing and/or infected incision, headaches, difficulty or inability to swallow, hoarseness, hemopneumothorax, pneumothorax, impotence, retrograde ejaculation, vaginal dryness; injury to nerves, spinal cord, blood vessels, lymphatics or other vital organs (i.e., bowel injury, injury to the great vessels); heterotopic bone formation; complications related to the hardware such as screws, rods, cages including misplaced hardware, device failure, instrumentation at the wrong spine level, hardware fracture/breakage, or hardware loosening; vertebral failure of the spinal column above or below the newly placed hardware; retained surgical instrumentations or devices and the need for further surgery. * Medical risks of the planned spine surgery include but are not limited to generalized Infections to the whole body or local areas outside of the surgical site (sepsis), heart attack, bleeding, anaphylaxis, meningitis, seizure, epilepsy, hearing loss, burn pichardo, laceration of the head or other areas of the body, bruising, hypersensitivity of the skin, bladder over distension; allergic reaction; shoulder injury related to positioning; fat, blood and air clots to other areas of the body like heart, lungs, brain; failure of internal organs such as lungs, kidneys, liver and excessive bleeding. If blood transfusions are necessary, note that transfusions may cause intolerance reactions such as anaphylaxis or other complex reactions. Despite best efforts, the results of spine surgery might not heal in terms of bone, soft tissues such as skin, fascia, ligaments, and joints. Additionally, in order to achieve best possible results, spine surgery may be carried out beyond the initially planned levels and involve decompression, fusion including insertion of hardware at levels other than the original intended area of surgical interest change some portions of the procedure in order to ensure the best possible outcomes. With spine surgery and spinal fusion, there are different off label uses of instrumentation (devices, implants and hardware) as well as biological substances (bone morphogenic proteins, demineralized bone matrix) as well as using extra bone from allograft sources (i.e. cadaver bone) or autograft (iliac crest bone, ribs, or the spine itself). The patient has been given information about these practices and their inherent risks and benefits. We have discussed at length the impact of tobacco, smoking and nicotiene has on healing, specifically in spine surgery and fusion surgery. This can increase you risks of non-healing up to 300% some studies show. We have discussed that the patient has been tobacco/smoke/nicotiene free for the past 6 weeks and will commit to at least 6 weeks after surgery of cessation of smoking and or any tobacco or nicotiene use. They have agreed to this and contest that they have been tobacco/nicotiene free for the past 6 weeks. The patient has had a chance to review all the listed information, has been given print outs detailing this information, and has had all his/her questions answered to their satisfaction. It was my pleasure to have seen and examined Sonia. In our visit today we have had a chance to go over my understanding of our patient's current condit ion, the natural course history without intervention and various interventional options. Questions were invited and answered, and the patient wishes to proceed as outlined above. I have seen and examined the patient for 25 minutes and we have spent more than 50% of the time in repeat and detailed counseling about the patient's condition, its natural course history with out and as much as can be predicted with surgery and re-review of various surgical treatment options. In conclusion, Sonia requested we proceed with the above suggested surgery and are willing to accept risks and limitations of the suggested surgery as nature of the disease process and our best attempts at treatment for the condition. Thank you again for allowing us to be part of your patient's care. Please don't hesitate to contact me if you have any further questions. Past Medical History Past Medical History: Eye Disorder, Hyperlipidemia, Musculoskeletal Disorder, Osteoarthritis (OA) Additional Past Medical History / Comment(s): phobia about needles, BILAT GLAUCOMA, neck and arm issues. rt arm very little feeling. History of Any Multi-Drug Resistant Organisms: None Reported Additional Past Surgical History / Comment(s): dental implants, PAIN CLINIC PRO CEDURES, Past Anesthesia/Blood Transfusion Reactions: No Reported Reaction Smoking Status: Current every day smoker - Past Family History Mother Family Medical History: Cancer, Deep Vein Thrombosis (DVT) Father Family Medical History: CVA/TIA, Deep Vein Thrombosis (DVT) Additional Family Medical History / Comment(s): Pacemaker Brother(s) Family Medical History: AFIB Medications and Allergies Home Medications Medication Instructions Recorded Confirmed Type Atorvastatin [Lipitor] 80 mg PO DAILY 07/07/23 03/23/24 History Meloxicam [Mobic] 15 mg PO DAILY 07/07/23 03/23/24 History Latanoprost Ophth [Xalatan 0.005%] 1 drops BOTH EYES HS 11/10/23 03/23/24 History Naproxen Sodium [Aleve] 220 mg PO DAILY 03/23/24 03/23/24 History Unk Multi Vitamin 1 tab PO DAILY 03/23/24 03/23/24 History Varenicline Tartrate 0.5 mg PO BID 03/23/24 03/23/24 History traZODone HCL [Trazodone HCl] 100 mg PO HS 03/23/24 03/23/24 History Allergies Allergy/AdvReac Type Severity Reaction Status Date / Time No Known Allergies Allergy Verified 03/23/24 13:17 Physical Examination Osteopathic Statement: *. No significant issues noted on an osteopathic structural exam other than those noted in the History and Physical/Consult.
[~2024-03-31 05:39] MED LIST changes: -LACTATED RINGERS 1,000 ML IV SCH; +TRANEXAMIC 1,000 MG/100ML-NACL 1,000 MG in SALINE 1 100ML.BAG IVPB PRN
[2024-03-31] MEDS: ACETAMINOPHEN TAB 500 MG TAB PO PRN (06:38)
[2024-03-31] MEDS: GABAPENTIN 300 MG CAP PO PRN (06:38)
[2024-03-31] MEDS: ONDANSETRON 4 MG/2 ML VIAL IVP PRN (06:57)
[2024-03-31] MEDS: MIDAZOLAM 2 MG/2 ML VIAL IV PRN (06:57)
[2024-03-31] MEDS: DEXAMETHASONE SOD PHOSPHATE 4 MG/ML 1 ML VIAL IVP STA (06:58)
[2024-03-31] MEDS: LACTATED RINGERS 1,000 ML IV SCH (06:59)
[2024-03-31] MEDS ORDERED: HYDROmorphone 0.5 MG/0.5 ML SYRINGE IVP PRN (07:00)
[2024-03-31 07:01] LABS: Glucose,Whole Blood 107 mg/dL (70-110)
[2024-03-31] MEDS: IV FLUID CONTINUATION 1,000 ML IV ONE ×2 (07:18→07:19)
[2024-03-31] MEDS ORDERED: MIDAZOLAM 2 MG/2 ML VIAL ONE (07:26)
[2024-03-31] MEDS ORDERED: PHENYLEPHRINE 10 MG/ML VIAL ONE (07:26)
[2024-03-31] MEDS ORDERED: fentaNYL (PF) 50 MCG/ML 2 ML AMP ONE (07:26)
[2024-03-31] MEDS ORDERED: HYDROmorphone (PF) 1 MG/ML ONE (07:26)
[2024-03-31] MEDS ORDERED: NEOSTIGMINE 1 MG/ML 10 ML VIAL ONE (07:26)
[2024-03-31] MEDS ORDERED: TRANEXAMIC 1,000 MG/100ML-NACL PREMIX BAG ONE (07:26)
[2024-03-31] MEDS ORDERED: LIDOCAINE 1% INJ 10MG/ML (20 ML MDV) ONE (07:26)
[2024-03-31] MEDS ORDERED: ROCURONIUM 10 MG/ML (5 ML VIAL) IV ONE (07:26)
[2024-03-31] MEDS ORDERED: SUCCINYLCHOLINE CHLORIDE 200 MG/10 ML VIAL IV ONE (07:26)
[2024-03-31] MEDS ORDERED: PROPOFOL 10 MG/ML 20 ML VIAL IV ONE (07:26)
[2024-03-31] MEDS ORDERED: KETAMINE HCL IN 0.9 % NACL 50 MG/5 ML SYRINGE ONE (07:26)
[2024-03-31] MEDS ORDERED: GLYCOPYRROLATE 0.2 MG/ML 2 ML VIAL ONE (07:26)
[2024-03-31] MEDS: THROMBIN (BOVINE) 5,000 UNIT VIAL MISCELLANE ONE (08:09)
--- NOTE | 2024-03-31 09:55 | P.OP ---
Date of Procedure: 03/31/24 Preoperative Diagnosis: Current Active Problems Herniation of cervical intervertebral disc with radiculopathy (Acute) Cervical spondylosis with radiculopathy (Acute) Radiculopathy affecting upper extremity (Acute) Upper extremity weakness (Acute) Neck pain (Acute) Postoperative Diagnosis: Current Active Problems Herniation of cervical intervertebral disc with radiculopathy (Acute) Cervical spondylosis with radiculopathy (Acute) Radiculopathy affecting upper extremity (Acute) Upper extremity weakness (Acute) Neck pain (Acute) Procedure(s) Performed: C5-6 ANTERIOR CERVICAL ARTHRODESIS C6-7 ANTERIOR CERVICAL ARTHRODESIS ANTERIOR INSTRUMENTATION C5-7 INSERTION OF BIOMECHANICAL DEVICE C5-6 AND C6-7 CAGES X2 USE OF IOMN USE OF IO MICROSCOPE Implants: BRADLEY CASCADIA CAGES 8MM, 9MM BRADLEY OZARK PLATE/SCREW 36MM, 14MM FIXED [employer] EASY PACK AUT[employer]RAFT Anesthesia: GETA Surgeon: Mata Cagle Plant Worker #1: Robert Dinh (WAS PRESENT AND ASSISTED WITH ALL ASPECTS OF THE CASE FROM POSITION TO CLOSURE) Estimated Blood Loss (ml): 40 IV fluids (ml): 1,200 Urine output (ml): 350 Pathology: none sent Condition: stable Disposition: PACU Indications for Procedure: Sonia is a 64 yo female presenting for evaluation of UE radiculopathy, weakness, pain, neck pain arm pain . It was my pleasure to have seen and examined Sonia. In our visit today we have had a chance to go over subjective complaints, physical examination findings and treatments including the natural course history without intervention and various interventional options. The patients imaging demonstrates C5-7 spondylosis severe, wtih severe disc collapse, central and b/l foraminal stenosis as well as flattened cervical lordosis. Anterior and posterior osteophyte formation noted contributing as well to stenotic features that are moderate to seveer. On physical exam, Sonia demonstrates Severe RUE radiculopathy, weakness, neck pain, debility related to this unable to performe her ADLs without singinificant pain and issues. I have explained to the patient that as their condition progresses it will cause further neurological deficits and eventual paralysis. Based on the patients imaging, physical exam, and the rapid progression and disabling nature of their symptoms, at this time I recommend surgery in the form or a: C5-7 ANTERIOR CERVICAL DISCECTOMY AND FUSION. I discussed the risk and benefits of this procedure at length with Sonia. The patient agreed to considered pursuing the procedure abovementioned. Prior to surgery, she should follow up with her PCP (Cardio, ID, IM etc) for clearance. Questions were invited and answered, and the patient wishes to proceed as outlined below. IMPRESSION: 1. CERVICAL SPONDYLOSIS WITH RADICULOPATHY C3-6 2. CERVICAL DISC DISORDER WITH RADICULOPATHY 3. UPPER EXTREMITY WEAKNESS 4. UPPER EXTREMITY RADICULOPATHY 5. UPPER EXTREMITY PARESTHESIAS 6. MYELOPATHY Currently, I am recommendin.C5-7 ANTERIOR CERVICAL DISCECTOMY AND FUSION Description of Procedure: C5-7 ACDF The patient was seen and examined in the preoperative area. All preoperative protocols were followed. Informed consent was obtained, risks and benefits of the procedure were discussed at length. Risks including bleeding infection damage to the surrounding tissue and risk of reoperation were discussed with the patient. Risk of anesthesia up to and including was discussed with the patient. These are outlined in the risk review. They were willing to accept these risks and all the risks of surgery. The patient was given a weight-based dose of antibiotics in the form of 2 g Ancef. The patient was seen and evaluated by the anesthesia team who deemed them fit for surgery. The site was marked, the patient was willing to proceed with the procedure. The patient was transferred to the operative suite by the Department of anesthes ia. They were then drifted off to sleep by the department anesthesia and GETA was performed. The patient tolerated this well. Fuller catheter was placed by nursing staff, a-traumatically. Once confirmation of lines and ventilation the patient was transferred to a Supine Dedrick table very carefully. All bony prominences including wrists, elbows, axilla, chest, hips, and thighs, and feet were padded very well. Special attention was paid to the genitalia, and these were padded accordingly. SCDs were placed on bilateral lower extremities and were connected. Arms were well padded and placed at their side thumbs up. Once in position, again we confirmed good ventilation capabilities and that lines were running appropriately. The patients Cervical spine was then exposed. 1010s were placed outlining the incision site. Standard alcohol was used to clean the incision site and allowed to dry. C-arm was used to bio-sha the patient and confirm level for incision which was marked with a skin marker. Operative briefing was performed with all teams and everyone in agreement to proceed. The patient was then prepped and draped in a normal sterile fashion. Timeout was then performed, and all parties agreed with the procedure to be performed. Transverse skin incision was then made on the right side of the patient's neck 3 cm and dissection taken down to the platysma which was split transversely. Sub platysma flap was made, and interval identified between SCM and medial structures. Omohyoid was visualized and protected. Blunt dissection taken down to the anterior cervical fascia which was identified. Blunt probe was then placed and lateral image taken which confirmed levels for operation. These levels were then marked with a bovi. Subperiosteal dissection of the longis simus muscles were then done over these levels identifying uncovertebral joints bilaterally. Retractor was then placed deep to these muscles and held in place with a bed arm. Starting at C6-7, [place] pins were placed into C6 and C7 and gentle distraction taken out over the levels. Selam rongeur used to remove disc material. Operating microscope brought in for visualization. Complete discectomy performed at this level with curette, rongure and pituitary. High speed ubaldo used to remove osteophytes anteriorly and posteriorly until PLL was identified. 6-0 up curette then used to identify the canal and resect the PLL. 2-0 and 3-0 Kerrison used then to remove PLL and disc herniation and performed b/l foraminotomies. Once good decompression was accomplished, meticulous hemostasis was performed. Sizers were then placed under lateral fluoroscopy until the desired height and lordosis. Cage was then selected, packed with autograft and allograft and placed under lateral imaging. Once in good position it was tested and stable. Motors run before and after cage placement were stable. The wound was irrigated, and autograft placed lateral to the cage anteriorly for fusion. [place] pin was then removed from C7 and placed into C5. Gentle distraction taken out over C5-6 now. Complete discectomy done at C5-6 as described including decompression, b/l foraminotomies and PLL resection. Burring of endplates was minimal, osteophytes removed as described. Spacers were then sized and placed under lateral imaging. Cage selected, packed with graft and placed under lateral images. Once in position, meticulous hemostasis performed, and motors remained stable before and after cage placement. AP image confirmed good placement of cages. Wound was irrigated. A separate, non-integrated plate was then selected and sized under lateral image. The plate was then placed with screws. Fixed screws drilled into C7 b/l and screws placed. Then into C6 and finally C5 with variable screws. All locking mechanisms were set, and all screws had good purchase. Final AP and lateral images taken confirmed good placement of hardware and good reduction and anabaptism of height. The wound was then irrigated copiously with NSS. Surgicel placed deep in the wound. A deep drain placed out a separate incision and secured to the skin. Layered closure then performed with 3-0 Vicryl in the platysma and subQ tissue. 4-0 Strata fix in the subcuticular tissue. The wound was then cleaned, and dried and skin glue placed. Once glue dried telfa, 4x4, tegaderms were placed. The patient was then transferred back to their hospital bed a-traumatically. The drain continued to hold suction. They were placed in a soft collar. They were then awakened by the department of anesthesia having tolerated the procedure well without complications.
--- NOTE | 2024-03-31 09:57 | XR ---
EXAMINATION TYPE: XR cervical spine limited DATE OF EXAM: 03/31/2024 CLINICAL HISTORY: pain TECHNIQUE: Portable crosstable views of the cervical spine intraoperatively. COMPARISON: None. FINDINGS: Localizers noted at the superior endplate of C5. Subsequent fluoroscopic images demonstrate changes of ACDF at C5-6 and C6-7. IMPRESSION: As above [facility], , 03/31/2024 9:55 AM
--- NOTE | 2024-03-31 09:58 | FL ---
Fluoroscopy History: ANT CERV FUSION IN OR 49sec fluoro time 1.0256 DAP [facility], , 03/31/2024 9:56 AM
[2024-03-31] MEDS ORDERED: ONDANSETRON 4 MG/2 ML VIAL IVP PRN (10:10)
[2024-03-31] MEDS ORDERED: MAGNESIUM HYDROXIDE 2,400 MG/30 ML CUP PO PRN (10:10)
[2024-03-31] MEDS ORDERED: SENNOSIDES-DOCUSATE SODIUM 1 EACH TAB PO PRN (10:10)
[2024-03-31] MEDS ORDERED: HYDROmorphone 1 MG/ML 1 ML SYRINGE IVP PRN (10:10)
[2024-03-31] MEDS: ACETAMINOPHEN TAB 325 MG TAB PO SCH (12:16)
--- NOTE | 2024-03-31 13:19 | CT ---
EXAMINATION TYPE: CT cervical spine wo con CT DLP: 330.6 mGycm, Automated exposure control for dose reduction was used. DATE OF EXAM: 03/31/2024 1:09 PM COMPARISON: Cervical spine radiograph 03/31/2024, 10/19/2022, MR cervical spine 04/05/2023. CLINICAL INDICATION:Female, 64 years old with history of s/p C5-C7 ACDF; PHH, s/p C5-C7 ACDF TECHNIQUE: Axial CT images from the skull base to the inferior aspect of T2 we obtained without intra venous contrast. Coronal and sagittal reformatted images were also reviewed. FINDINGS: Fracture: None. Osseous structures: Postsurgical changes from ACDF C5-C7. This creates streak artifact which limits a ttenuation. Hardware appears intact with appropriate alignment. Multilevel facet arthropathy Vertebral alignment: Within normal limits. Spinal canal/Neural Foramina: No evidence of significant spinal canal narrowing. Trace pneumorachis r elated to surgical intervention. Facet joint uncovertebral joint arthropathy scattered throughout the cervical spine with varying degrees of neural foraminal stenosis. Moderate right neural foraminal st enosis at C4-C5. Neck soft tissues: Prevertebral soft tissues from C5 through C7 are edematous related to surgery. The re is some gas in the prevertebral soft tissue spaces extending along the right neck related to surge ry. Right anterior approach surgical drain identified with tip just anterior to the C7 vertebral body . Other: The airway is patent. The lung apices are clear. IMPRESSION: Postsurgical changes from ACDF C5-C7. Hardware appears intact. No CT evidence for significant complic ation. [facility], , 03/31/2024 1:17 PM
[2024-03-31] MEDS: CYCLOBENZAPRINE 5 MG TAB PO SCH (15:06)
[2024-03-31] MEDS: GABAPENTIN 300 MG CAP PO SCH (15:06)
--- NOTE | 2024-03-31 15:56 | P.CONS ---
History of Present Illness - Reason for Consult Consult date: 03/31/24 - History of Present Illness 64 year old F with PMH Glaucoma and HLD presents to [facility] for elective surgery. She underwent C5-6 anterior cervical arthrodesis and C6-7 anterior cervical arthrodesis, anterior instrumentation C5-7 with insertion of biomechanical device. [facility] consulted for medical management of this patient. 03/31 Patient was seen and examined. Well controlled pain. Urinating freely. No bowel movement. Not passing gas. POC glucose 107. General: non toxic, no distress, appears at stated age Derm: warm, dry Head: atraumatic, normocephalic, symmetric, C-collar intact Eyes: EOMI, no lid lag, anicteric sclera Mouth: no lip lesion, mucus membranes moist Cardiovascular: S1 S2 reg. No murmurs, rubs, gallops Lungs: Clear to auscultation bilaterally, no accessory muscle use Ext: no gross muscle atrophy, no edema, no contractures Neuro: no focal neuro deficits Psych: Alert, oriented, appropriate affect Based on my assessment of this patient, this patient meets a high complexity level of care. Dyslipidemia: Lipitor 80 mg PO QD. Glaucoma: Latanoprost eye drops QHS. Insomnia: Trazodone 100 mg PO QHS. Nicotine abuse: Verenicline 0.5 mg PO BID. CODE STATUS: FULL CODE. DVT Prophylaxis: SCD. GI Prophylaxis: Designated medical POA if patient is not able to make medical decisions for themselves: I have reviewed the following natural remedy consultant notes: Ortho note. I have reviewed the results of the following tests: POC glucose. I have ordered the following tests: Agree with CBC and BMP in AM. I have discussed the care of this patient with the following independent histori an: RN. I have independently interpreted the following test below: I have discussed the management of this patient with the following physician: Past Medical History Past Medical History: Eye Disorder, Hyperlipidemia, Musculoskeletal Disorder, Osteoarthritis (OA) Additional Past Medical History / Comment(s): phobia about needles, BILAT GLAUCOMA, neck and arm issues. rt arm very little feeling. History of Any Multi-Drug Resistant Organisms: None Reported Additional Past Surgical History / Comment(s): dental implants, PAIN CLINIC PROCEDURES, Past Anesthesia/Blood Transfusion Reactions: No Reported Reaction Past Psychological History: Anxiety Additional Psychological History / Comment(s): for shots. Smoking Status: Current every day smoker Past Alcohol Use History: Occasional Additional Past Alcohol Use History / Comment(s): 1ppd since teens, quit for 7 yrs. in 40's- cut down to 5 cigarettes a day. Past Drug Use History: None Reported - Past Family History Mother Family Medical History: Cancer, Deep Vein Thrombosis (DVT) Father Family Medical History: CVA/TIA, Deep Vein Thrombosis (DVT) Additional Family Medical History / Comment(s): Pacemaker Brother(s) Family Medical History: AFIB Medications and Allergies Home Medications Medication Instructions Recorded Confirmed Type Atorvastatin [Lipitor] 80 mg PO DAILY 07/07/23 03/31/24 History Meloxicam [Mobic] 15 mg PO DAILY 07/07/23 03/31/24 History Latanoprost Ophth [Xalatan 0.005%] 1 drops BOTH EYES HS 11/10/23 03/31/24 History Naproxen Sodium [Aleve] 220 mg PO DAILY 03/23/24 03/31/24 History Unk Multi Vitamin 1 tab PO DAILY 03/23/24 03/31/24 History Varenicline Tartrate 0.5 mg PO BID 03/23/24 03/31/24 History traZODone HCL [Trazodone HCl] 100 mg PO HS 03/23/24 03/31/24 History Allergies Allergy/AdvReac Type Severity Reaction Status Date / Time No Known Allergies Allergy Verified 03/31/24 06:29 Physical Exam Vitals: Vital Signs Temp Pulse Resp BP Pulse Ox 03/31/24 13:04 97.7 F 94 20 153/90 94 L 03/31/24 10:38 75 18 157/85 94 L 03/31/24 10:33 139/81 03/31/24 10:23 72 18 158/81 95 03/31/24 10:08 68 18 134/77 99 03/31/24 09:53 97.8 F 78 16 139/78 96 03/31/24 07:15 97.5 F L 69 16 144/82 97 Intake and Output 03/31/24 03/31/24 03/31/24 06:59 14:59 22:59 Intake Total 1850 Output Total 150 Balance 1700 Intake: IV 1850 Output: Urine 125 Estimated Blood Loss 25 Other: Weight 64.5 kg
[2024-03-31] MEDS: HYDROcodone/APAP 10-325MG 1 EACH TAB PO PRN (17:04)
[2024-03-31] MEDS: traZODone HCL 100 MG TAB PO SCH (21:54)
[2024-03-31] MEDS: LATANOPROST 0.005% OPHTH DROPS 2.5 ML BTL BOTH EYES SCH (21:54)
[2024-03-31] MEDS: VARENICLINE 0.5 MG TAB PO SCH (21:54)
[2024-03-31] MEDS: HYDROmorphone 0.5 MG/0.5 ML SYRINGE IVP PRN (21:57)
[2024-04-01 07:11] VITALS: BP 136/90; PULSE 89; RESP 18; TEMP 98.2
[2024-04-01] MEDS ORDERED: LIDOCAINE-PRILOCAINE 2.5-2.5% CREAM 5 GM TUBE TOPICAL STA (08:17)
--- NOTE | 2024-04-01 08:57 | P.DS ---
Providers Date of admission: 03/31/2024 Expected date of discharge: 04/01/24 Attending physician: Mata Cagle DO Consults: 03/31/24 10:10 Consult Physician Routine Consulting Provider: Salvatore De Los Santos Consult Reason/Comments: medical management s/p C5-C7 Do you want consulting provider notified?: Yes [facility] care [facility] Course: Date of admission: 03/31/2024 Date of discharge: 04/01/2024 Admission diagnosis: Herniation of cervical intervertebral disc with radiculopathy (Acute) Cervical spondylosis with radiculopathy (Acute) Radiculopathy affecting upper extremity (Acute) Upper extremity weakness (Acute) Neck pain (Acute) Discharge diagnosis: Same Attending physician: Dr. Cagle Surgical procedures: C5-C7 ACDF Brief history: Patient is a 64-year-old female with a history of herniation of cervical intervertebral disc with radiculopathy; cervical spondylosis with radiculopathy; upper extremity weakness; neck pain. At this point patient has failed conservative treatment measures and has opted to proceed with a elective C5-C7 ACDF. Hospital course: Details of patient's surgery can be found in operative report. Patient tolerated the procedure well and was subsequently transported to orthopedic floor. Patient's orthopeidc and medical care was provided daily. Patient had daily laboratory tests performed for evaluation of overall blood counts. Patient had daily physical therapy to include strengthening range of motion as well as education with walker ambulation. Patient was noted to have a relatively uneventful postoperative course. Patient reported satisfactory pain control with oral pain medications by postoperative day 1. Patient showed satisfactory progress with physical therapy. Patient moved steadily through the program and had no difficulty meeting the goals by postoperative day 1. Given patient's otherwise satisfactory course and having met physical therapy goals, plan is to discharge patient home on postoperative day 1. Discharge condition/disposition: Patient will be discharged home in stable condition. Discharge medications: Instructions are given on resumption of patient's normal daily medications per primary care recommendation, in addition patient will be prescribed [place]; gabapentin; Flexeril; senna; Duricef. Spine Discharge and Recovery Instructions Date of Surgery: 03/31/2024 Diagnosis: Herniation of cervical intervertebral disc with radiculopathy (Acute) Cervical spondylosis with radiculopathy (Acute) Radiculopathy affecting upper extremity (Acute) Upper extremity weakness (Acute) Neck pain (Acute) Procedure: C5-C7 ACDF Medications: See medication list All medication refills should be obtained through your primary care doctor or your clinic spine surgeon. Please discuss prescription refills at your follow up appointment. Do not call the hospital for medication refills. Dressing: Leave your dressing in place for a total of 5 days post operatively. Then you may remove your dressing and leave open to air. Keep the area clean and if not able to keep area clean, then cover with sterile gauze and tape. Showering: You may shower 3 days after your procedure allowing soap and water to run over incision. Do not scrub. Do not soak. Blot dry. Follow up: Please confirm a follow up appointment with your surgeon 3 weeks post opera tively. Please make an appointment to follow up with your PCP in 1-2 weeks after surgery for evaluation '3 phase, 3-week plan' POST OP WEEKS 1-3 1. Lifting/carrying/pushing/pulling limited to less than 5 pounds. 2. Do not sit for longer than 15 minutes at one time. Get up and walk around. Prolonged sitting is NOT advised. If you lay down, see if you can tolerate laying down on you front (belly side) 3. Walk for periods of 15 minutes = 1 mile but no longer; do it multiple times times each day. 4. Ice your low back after activity. POST OP WEEKS 3-6 1. Lifting limited to less than 20 pounds. 2. Do not sit for longer than 30 minutes at a time. Frequently change positions. Use a sit-to stand workstation or take frequent breaks from sitting if you have returned to work. 3. Walk for 30 minutes each day. If possible, do these three or more times a day POST OP WEEKS 6+ At your 6-week appointment we will give you a physical therapy referral to focus on a core stabilization and strengthening program. You should also work on leg & buttock strengthening, hamstring & quadriceps stretching, and continue a low impact aerobic activity program such as swimming, walking, or riding a stationary bicycle. During the initial 6 weeks after your surgery, you are at the highest risk of re-injuring your spine. You should generally avoid BLT's (bending, lifting and twisting combination motions) and follow the above guidelines to reduce the chance of reinjury. You can anticipate post op appointments in our office at approximately 3 weeks and 6 weeks after your surgery. INCISION CARE: If your incision is not draining you do NOT need to cover it with a dressing. Keep your incision clean, dry and intact. In most cases, we apply skin glue, cathie or sutures to the incision at the time of surgery. This will be like a crust or have the appearance of a scab and will fall off in time on its own. The stitches or cathie need to be removed at 3 weeks post op appointment. You may begin to shower 3 days after surgery (this allows the glue to turner well). However, please avoid scrubbing the incision site or peeling off any of the skin glue. This will ensure optimal healing of your incision. Also, during this time avoid soaking the incision area in water - this includes swimming pools, hot tubs or baths. No ointments, lotions or oils on the incision until your surgeon allows. Leave cathie, sutures or glue in place. Neurological dysfunction that comes on suddenly can also be a sign of a stroke. Below some common symptoms of a stroke are listed: B - balance difficulty such as sudden onset walking or leaning to one side - NEW E - eye problem such as sudden double vision or trouble seeing on one side - NEW F - Facial weakness or numbness on one side - NEW A - Arm or leg weakness or numbness on one side - NEW S - Slurred speech or difficulty with word finding - NEW T - Time is BRAIN! Call 911 as soon as you recognize these symptoms Diet: Consume a regular diet rich in vegetables and lean protein such as chicken or fish. You should consume in a ratio of approximately 20% fats|40% carbohydrates|40%protein. Vegetables, sweet potatoes, brown rice or quinoa are examples of good carbohydrates. Chips, white bread, cookies and sweets/sugar are examples of bad carbohydrates. Limit your bad carbs, go wild with good carbs. "Life's Simple 7" Guidelines as per [place] [employer] These will help you reclaim your life after surgery and driver helper in your recovery, keeping in mind your restrictions. (1) Get Active. Physical activity can help people lose weight, control high blood pressure and cholesterol, feel emotionally better, and sleep better. (2) Control Cholesterol. Avoid a diet high in saturated fat, trans fat, & cholesterol. Limit whole milk & cream, ice cream, butter, egg yolks, processed meats (like sausage and hot dogs), and fatty meats. Choose healthy foods that are low in saturated fat, trans fat and cholesterol which include: Fruits and vegetables, fiber rich grain products (like whole grain pasta and brown rice), lean meat such as chicken, fish, nuts, seeds, and legumes. (3) Eat Better. Eat small portions. Shop at the grocery with a list and do not stray from it. Tips for a healthy diet include: Limit sodium intake to less than 1500mg daily, avoid prepackaged, processed, and fast foods, choose a diet rich in fruits, vegetables, and whole grain, high fiber foods, and limit saturated & cholesterol in your diet. (4) Manage Blood Pressure. If you have high blood pressure, you should have a cuff at home so that you can check your blood pressure regularly. Be sure you have a good cuff. An arm one is generally better than a wrist one. Bring the cuff to a doctor's appointment to validate that the measurements that your cuff are taking are accurate. Take your blood pressure twice daily when you are sitting down and relaxing. Record the numbers in a log and bring this log with you to your doctors' appointments. (5) Lose Weight if your BMI is above 25. A healthy BMI is between 19-25. To calculate Your BMI, you may use a Standard BMI Calculator on the NIH BMI website: <www.nhlbi.nih.gov/guidelines/obesity/BMI/bmicalc.htm>. Weigh oneself daily. If you are overweight, set a goal to lose weight. A pound a week loss if needed is a good target. (6) Reduce Blood Sugar. Limit foods and liquids with "added sugars." (Added sugars include sucrose, fructose, glucose, maltose, dextrose, high fructose corn syrup, corn syrup, concentrated fruit juice and honey). (7) Stop Smoking. If you smoke, quitting smoking is one of the best things that you can do for your health. Smoking increases your risk of heart attack, stroke, and peripheral vascular disease, which is a build-up of plaque in your a rteries. Please discard all the cigarettes and lighters in your house. Have a plan for what you will do when you have the urge to smoke. Direct and second- hand smoke shortens your life as well as the lives of your family, friends and others around you. For your health and the health of those around you, please consider quitting! Proper Bending Body Mechanics: Maintain a wide stance with one foot slightly in front of the other. Keep your back straight. Bend utilizing the strength in your hips and knees. Do not bend at the waist. Maintain the lifted object at your waist-level close to your body. Avoid lifting weight that causes immediately pain or pain anywhere in the body afterwards. Smoking/Nicotine If there was ever one thing that you could do to increase your overall health, decrease your risk of cardiovascular problems by about 39% the second you make the choice, it is to STOP SMOKING. Your body's most instant gratification is the second you stop smoking. We have all heard the studies, read the articles but it is true, smoking is extremely bad for your overall health, and moreover it is detrimental to your bone health. Nicotine, IN ANY FORM, kills bone cells, prevents your body from healing fractures, and significantly prolongs healing after surgery. In spine surgery specifically, it increases your risk of not healing your bones to create a fusion and increases your risk of having a revision surgery due to this up to 60%. I know it is hard. I know it feels impossible. But there are ways. Take control of your life. We are here to help you through it. And when you are ready, ask us and we can direct you to help if you desire. Use the START Plan to Quit Smoking (please visit the [employer].org website listed below for more information): S = Set a quit date. Choose a date within the next 2 weeks, so you have enough time to prepare without losing your motivation to quit. If you mainly smoke at work, quit on the weekend, so you have a few days to adjust to the change. T = Tell family, friends, and co-workers that you plan to quit. Let your friends and family in on your plan to quit smoking and tell them you need their support and encouragement to stop. Look for a quit blake who wants to stop smoking as well. You can help each other get through the rough times. A = Anticipate and plan for the challenges you'll face while quitting. Most people who begin smoking again do so within the first 3 months. You can help yourself make it through by preparing ahead for common challenges, such as nicotine withdrawal and cigarette cravings. R = Remove cigarettes and other tobacco products from your home, car, and work. Throw away all your cigarettes (no emergency pack!), lighters, ashtrays, and matches. Wash your clothes and freshen up anything that smells like smoke. Shampoo your car, clean your drapes and carpet, and steam your furniture. T = Talk to your doctor about getting help to quit. Your doctor can prescribe medication to help with withdrawal and suggest other alternatives. If you can't see a doctor, you can get many products over the counter at your local pharmacy or grocery store, including the nicotine patch, nicotine lozenges, and nicotine gum. Resources for Quitting Smoking: <https://www.[place].gov/docu ments/[facility]/Quit_Tobacco_Resources_for_patients_313480_7.pdf> Supplementation: Take recommended dosages of Vitamin D and Calcium to help fortify your bones and help them to heal. See your health maintenance packet for dosages and recommended levels. DVT/VTE prophylaxis: You will be given compression stockings from the hospital. Wear these daily for the first two weeks after surgery. You may take them off at night. You may be prescribed a medication to help thin your blood. Take this as directed. If you are not prescribed this medication, early and frequent ambulation has been shown to be the best prophylaxis to deep vein thrombosis and sequelae related to this event. Assessment: Herniation of cervical intervertebral disc with radiculopathy (Acute) Cervical spondylosis with radiculopathy (Acute) Radiculopathy affecting upper extremity (Acute) Upper extremity weakness (Acute) Neck pain (Acute) Procedures: C5-C7 ACDF Patient Condition at Discharge: Good Plan - Discharge Summary Discharge Rx Participant: No New Discharge Prescriptions: No Action Meloxicam [Mobic] 15 mg PO DAILY traZODone HCL [Trazodone HCl] 100 mg PO HS Varenicline Tartrate 0.5 mg PO BID Unk Multi Vitamin 1 tab PO DAILY Atorvastatin [Lipitor] 80 mg PO DAILY Latanoprost Ophth [Xalatan 0.005%] 1 drops BOTH EYES HS Naproxen Sodium [Aleve] 220 mg PO DAILY Discharge Medication List Atorvastatin [Lipitor] 80 mg PO DAILY 07/07/23 [History] Meloxicam [Mobic] 15 mg PO DAILY 07/07/23 [History] Latanoprost Ophth [Xalatan 0.005%] 1 drops BOTH EYES HS 11/10/23 [History] Naproxen Sodium [Aleve] 220 mg PO DAILY 03/23/24 [History] Unk Multi Vitamin 1 tab PO DAILY 03/23/24 [History] Varenicline Tartrate 0.5 mg PO BID 03/23/24 [History] traZODone HCL [Trazodone HCl] 100 mg PO HS 03/23/24 [History] Follow up Appointment(s)/Referral(s): Mata Cagle DO [Doctor of Osteopathic Medicine] - 2 Weeks Patient Instructions/Handouts: Anterior Cervical Discectomy (GEN) Activity/Diet/Wound Care/Special Instructions: Spine Discharge and Recovery Instructions Date of Surgery: 03/31/2024 Diagnosis: Herniation of cervical intervertebral disc with radiculopathy (Acute) Cervical spondylosis with radiculopathy (Acute) Radiculopathy affecting upper extremity (Acute) Upper extremity weakness (Acute) Neck pain Procedure: C5-C7 ACDF Medications: See medication list All medication refills should be obtained through your primary care doctor or your clinic spine surgeon. Please discuss prescription refills at your follow up appointment. Do not call the hospital for medication refills. Dressing: Leave your dressing in place for a total of 5 days post operatively. Then you may remove your dressing and leave open to air. Keep the area clean and if not able to keep area clean, then cover with sterile gauze and tape. Showering: You may shower 3 days after your procedure allowing soap and water to run over incision. Do not scrub. Do not soak. Blot dry. Follow up: Please confirm a follow up appointment with your surgeon 3 weeks post operatively. Please make an appointment to follow up with your PCP in 1-2 weeks after surgery for evaluation '3 phase, 3-week plan' POST OP WEEKS 1-3 1. Lifting/carrying/pushing/pulling limited to less than 5 pounds. 2. Do not sit for longer than 15 minutes at one time. Get up and walk around. Prolonged sitting is NOT advised. If you lay down, see if you can tolerate laying down on you front (belly side) 3. Walk for periods of 15 minutes = 1 mile but no longer; do it multiple times times each day. 4. Ice your low back after activity. POST OP WEEKS 3-6 1. Lifting limited to less than 20 pounds. 2. Do not sit for longer than 30 minutes at a time. Frequently change positions. Use a sit-to stand workstation or take frequent breaks from sitting if you have returned to work. 3. Walk for 30 minutes each day. If possible, do these three or more times a day POST OP WEEKS 6+ At your 6-week appointment we will give you a physical therapy referral to focus on a core stabilization and strengthening program. You should also work on leg & buttock strengthening, hamstring & quadriceps stretching, and continue a low impact aerobic activity program such as swimming, walking, or riding a stationary bicycle. During the initial 6 weeks after your surgery, you are at the highest risk of re-injuring your spine. You should generally avoid BLT's (bending, lifting and twisting combination motions) and follow the above guidelines to reduce the chance of reinjury. You can anticipate post op appointments in our office at approximately 3 weeks and 6 weeks after your surgery. INCISION CARE: If your incision is not draining you do NOT need to cover it with a dressing. Keep your incision clean, dry and intact. In most cases, we apply skin glue, cathie or sutures to the incision at the time of surgery. This will be like a crust or have the appearance of a scab and will fall off in time on its own. The stitches or cathie need to be removed at 3 weeks post op appointment. You may begin to shower 3 days after surgery (this allows the glue to turner well). However, please avoid scrubbing the incision site or peeling off any of the skin glue. This will ensure optimal healing of your incision. Also, during this time avoid soaking the incision area in water - this includes swimming pools, hot tubs or baths. No ointments, lotions or oils on the incision until your surgeon allows. Leave cathie, sutures or glue in place. Neurological dysfunction that comes on suddenly can also be a sign of a stroke. Below some common symptoms of a stroke are listed: B - balance difficulty such as sudden onset walking or leaning to one side - NEW E - eye problem such as sudden double vision or trouble seeing on one side - NEW F - Facial weakness or numbness on one side - NEW A - Arm or leg weakness or numbness on one side - NEW S - Slurred speech or difficulty with word finding - NEW T - Time is BRAIN! Call 911 as soon as you recognize these symptoms Diet: Consume a regular diet rich in vegetables and lean protein such as chicken or fish. You should consume in a ratio of approximately 20% fats|40% carbohydrates|40%protein. Vegetables, sweet potatoes, brown rice or quinoa are examples of good carbohydrates. Chips, white bread, cookies and sweets/sugar are examples of bad carbohydrates. Limit your bad carbs, go wild with good carbs. "Life's Simple 7" Guidelines as per [place] [employer] These will help you reclaim your life after surgery and driver helper in your recovery, keeping in mind your restrictions. (1) Get Active. Physical activity can help people lose weight, control high blood pressure and cholesterol, feel emotionally better, and sleep better. (2) Control Cholesterol. Avoid a diet high in saturated fat, trans fat, & cholesterol. Limit whole milk & cream, ice cream, butter, egg yolks, processed meats (like sausage and hot dogs), and fatty meats. Choose healthy foods that are low in saturated fat, trans fat and cholesterol which include: Fruits and vegetables, fiber rich grain products (like whole grain pasta and brown rice), lean meat such as chicken, fish, nuts, seeds, and legumes. (3) Eat Better. Eat small portions. Shop at the grocery with a list and do not stray from it. Tips for a healthy diet include: Limit sodium intake to less than 1500mg daily, avoid prepackaged, processed, and fast foods, choose a diet rich in fruits, vegetables, and whole grain, high fiber foods, and limit saturated & cholesterol in your diet. (4) Manage Blood Pressure. If you have high blood pressure, you should have a cuff at home so that you can check your blood pressure regularly. Be sure you have a good cuff. An arm one is generally better than a wrist one. Bring the cuff to a doctor's appointment to validate that the measurements that your cuff are taking are accurate. Take your blood pressure twice daily when you are sitting down and relaxing. Record the numbers in a log and bring this log with you to your doctors' appointments. (5) Lose Weight if your BMI is above 25. A healthy BMI is between 19-25. To calculate Your BMI, you may use a Standard BMI Calculator on the NIH BMI website: <www.nhlbi.nih.gov/guidelines/obesity/BMI/bmicalc.htm>. Weigh oneself daily. If you are overweight, set a goal to lose weight. A pound a week loss if needed is a good target. (6) Reduce Blood Sugar. Limit foods and liquids with "added sugars." (Added sugars include sucrose, fructose, glucose, maltose, dextrose, high fructose corn syrup, corn syrup, concentrated fruit juice and honey). (7) Stop Smoking. If you smoke, quitting smoking is one of the best things that you can do for your health. Smoking increases your risk of heart attack, stroke, and peripheral vascular disease, which is a build-up of plaque in your arteries. Please discard all the cigarettes and lighters in your house. Have a plan for what you will do when you have the urge to smoke. Direct and second- hand smoke shortens your life as well as the lives of your family, friends and others around you. For your health and the health of those around you, please consider quitting! Proper Bending Body Mechanics: Maintain a wide stance with one foot slightly in front of the other. Keep your back straight. Bend utilizing the strength in your hips and knees. Do not bend at the waist. Maintain the lifted object at your waist-level close to your body. Avoid lifting weight that causes immediately pain or pain anywhere in the body afterwards. Smoking/Nicotine If there was ever one thing that you could do to increase your overall health, decrease your risk of cardiovascular problems by about 39% the second you make the choice, it is to STOP SMOKING. Your body's most instant gratification is the second you stop smoking. We have all heard the studies, read the articles but it is true, smoking is extremely bad for your overall health, and moreover it is detrimental to your bone health. Nicotine, IN ANY FORM, kills bone cells, prevents your body from healing fractures, and significantly prolongs healing after surgery. In spine surgery specifically, it increases your risk of not healing your bones to create a fusion and increases your risk of having a revision surgery due to this up to 60%. I know it is hard. I know it feels impossible. But there are ways. Take control of your life. We are here to help you through it. And when you are ready, ask us and we can direct you to help if you desire. Use the START Plan to Quit Smoking (please visit the Helpguide.org website [place] below for more information): S = Set a quit date. Choose a date within the next 2 weeks, so you have enough time to prepare without losing your motivation to quit. If you mainly smoke at work, quit on the weekend, so you have a few days to adjust to the change. T = Tell family, friends, and co-workers that you plan to quit. Let your friends and family in on your plan to quit smoking and tell them you need their support and encouragement to stop. Look for a quit blake who wants to stop smoking as well. You can help each other get through the rough times. A = Anticipate and plan for the challenges you'll face while quitting. Most people who begin smoking again do so within the first 3 months. You can help yourself make it through by preparing ahead for common challenges, such as nicotine withdrawal and cigarette cravings. R = Remove cigarettes and other tobacco products from your home, car, and work. Throw away all your cigarettes (no emergency pack!), lighters, ashtrays, and matches. Wash your clothes and freshen up anything that smells like smoke. Shampoo your car, clean your drapes and carpet, and steam your furniture. T = Talk to your doctor about getting help to quit. Your doctor can prescribe medication to help with withdrawal and suggest other alternatives. If you can't see a doctor, you can get many products over the counter at your local pharmacy or grocery store, including the nicotine patch, nicotine lozenges, and nicotine gum. Resources for Quitting Smoking: <https://www.[place].gov/documents/[facility]/Quit_Tobacco_Resource s_for_patients_313480_7.pdf> Supplementation: Take recommended dosages of Vitamin D and Calcium to help fortify your bones and help them to heal. See your health maintenance packet for dosages and recommended levels. DVT/VTE prophylaxis: You will be given compression stockings from the hospital. Wear these daily for the first two weeks after surgery. You may take them off at night. You may be prescribed a medication to help thin your blood. Take this as directed. If you are not prescribed this medication, early and frequent ambulation has been shown to be the best prophylaxis to deep vein thrombosis and sequelae related to this event. Discharge Disposition: HOME SELF-CARE
--- NOTE | 2024-04-01 09:01 | P.PN ---
Subjective Progress Note Date: 04/01/24 Principal diagnosis: Herniation of cervical intervertebral disc with radiculopathy (Acute) Cervical spondylosis with radiculopathy (Acute) Radiculopathy affecting upper extremity (Acute) Upper extremity weakness (Acute) Neck pain (Acute) Patient was seen at bedside this morning lying in the summer composition with hard c-collar in place and dressing over anterior cervical spine. Patient says she has urinated several times since surgery yesterday without issue. Patient says she has started to pass gas, but no bowel movement yet. Patient says she is hoping to go home later today. Patient says she is having some scratchiness in her throat and a little bit of hoarseness. Patient denies any other significant issues at this time. Objective - Vital Signs Vital signs: Vital Signs Temp 98.2 F 04/01/24 07:10 Pulse 89 04/01/24 07:10 Resp 18 04/01/24 07:10 BP 136/90 04/01/24 07:10 Pulse Ox 91 L 04/01/24 07:10 FiO2 Intake & Output 03/31/24 04/01/24 04/01/24 18:59 06:59 18:59 Intake Total 1850 540 Output Total 150 15 Balance 1700 525 Weight 64.5 kg Intake: IV 1850 Oral 540 Output: Drainage 15 Anterior Neck 15 Urine 125 Estimated Blood Loss 25 Other: # Voids 2 - Exam Dressing was removed at bedside this morning and drain was removed. Negative for any active drainage. Incision appears to be healing well at this time. New dressing was placed over incision. Hard c-collar in place. Sensation is equal, symmetric, bilateral intact throughout the upper and lower extremities on exam. There is some moderate tenderness to palpation diffusely throughout the anterior cervical spine near incision. Nontender to palpation throughout rest of exam. Patient does have good range of motion throughout bilateral upper and lower extremities on exam. 4/5 in all major motor groups in bilateral upper extremities. Radial pulse intact, 2+ bilaterally. Cap refill under 3 seconds in digits of upper extremities. Negative Homans bilaterally. Assessment and Plan Assessment: Herniation of cervical intervertebral disc with radiculopathy (Acute) Cervical spondylosis with radiculopathy (Acute) Radiculopathy affecting upper extremity (Acute) Upper extremity weakness (Acute) Neck pain (Acute) -Postop day 1 status post C5-C7 ACDF Plan: 1. Herniation of cervical intervertebral disc with radiculopathy; Cervical spondylosis with radiculopathy; Radiculopathy affecting upper extremity; Upper extremity weakness -surgery performed yesterday, 03/31/2024C5-C7 ACDF. Patient stable bedside's morning. Drain was removed at bedside and dressing was changed. Hard c-collar in place discharge home today. 2. Appreciate medical management 3. Pain management -Marianna; Flexeril; gabapentin 4. GI prophylaxis -senna 5. DVT prophylaxis -mechanical 6. PT/OT -hard c-collar on at all times. Weightbearing as tolerated 7. Encourage incentive spirometer use 8. Discharge planning -discharge home today Time with Patient: Less than 30
[2024-04-01] MEDS: HYDROcodone/APAP 5-325MG 1 EACH TAB PO PRN (09:10)
[2024-04-01] MEDS: ATORVASTATIN 80 MG TAB PO SCH (09:11)
--- NOTE | 2024-04-01 12:03 | P.PN ---
Subjective Progress Note Date: 04/01/24 64 year old F with PMH Glaucoma and HLD presents to [facility] for elective surgery. She underwent C5-6 anterior cervical arthrodesis and C6-7 anterior cervical arthrodesis, anterior instrumentation C5-7 with insertion of biomechanical device. [facility] consulted for medical management of this patient. 03/31 Patient was seen and examined. Well controlled pain. Urinating freely. No bowel movement. Not passing gas. POC glucose 107. 04/01 Patient was seen and examined. 91% on RA. No complaints. Discussed with RN, plans to monitor O2 sat while working with PT. CBC and BMP is pending. General: non toxic, no distress, appears at stated age Derm: warm, dry Head: atraumatic, normocephalic, symmetric, C-collar intact Eyes: EOMI, no lid lag, anicteric sclera Mouth: no lip lesion, mucus membranes moist Cardiovascular: S1 S2 reg. No murmurs, rubs, gallops Lungs: Clear to auscultation bilaterally, no accessory muscle use Ext: no gross muscle atrophy, no edema, no contractures Neuro: no focal neuro deficits Psych: Alert, oriented, appropriate affect Based on my assessment of this patient, this patient meets a high complexity level of care. Dyslipidemia: Lipitor 80 mg PO QD. Glaucoma: Latanoprost eye drops QHS. Insomnia: Trazodone 100 mg PO QHS. Nicotine abuse: Verenicline 0.5 mg PO BID. Plans for discharge home if patient passes home O2 eval and CBC/BMP results benign. CODE STATUS: FULL CODE. DVT Prophylaxis: SCD. GI Prophylaxis: Designated medical POA if patient is not able to make medical decisions for themselves: I have reviewed the following architecture consultant notes: Ortho note. I have reviewed the results of the following tests: I have ordered the following tests: I have discussed the care of this patient with the following independent historian: RN. I have independently interpreted the following test below: I have discussed the management of this patient with the following physician: Objective - Vital Signs Vital signs: Vital Signs Temp 98.2 F 04/01/24 07:10 Pulse 89 04/01/24 08:00 Resp 18 04/01/24 08:00 BP 136/90 04/01/24 07:10 Pulse Ox 91 L 04/01/24 07:10 FiO2 Intake & Output 03/31/24 04/01/24 04/01/24 18:59 06:59 18:59 Intake Total 1850 540 450 Output Total 150 15 125 Balance 1700 525 325 Weight 64.5 kg Intake: IV 1850 Oral 540 450 Output: Drainage 15 Anterior Neck 15 Urine 125 125 Estimated Blood Loss 25 Other: # Voids 2 2
[2024-04-01 12:10] LABS: Basophils # (A) 0.1 k/uL (0-0.2); Basophils % (A) 0 %; Eosinophils # (A) 0.2 k/uL (0-0.7); Eosinophils % (A) 2 %; HCT 41.6 % (34.0-46.0); HGB 14.4 gm/dL (11.4-16.0); Lymphocytes # (A) 2.6 k/uL (1.0-4.8); Lymphocytes % (A) 17 %; MCH 33.8 pg (25.0-35.0); MCHC 34.6 g/dL (31.0-37.0); MCV 97.9 fL (80.0-100.0); Mean Platelet Volume 8.3; Monocytes # (A) 1.1 k/uL (0-1.0); Monocytes % (A) 7 %; Neutrophils # (A) 11.3 k/uL (1.3-7.7); Neutrophils % (A) 74 %; Platelet Count 296 k/uL (150-450); RBC 4.25 m/uL (3.80-5.40); RDW 13.1 % (11.5-15.5); WBC 15.4 k/uL (3.8-10.6)
[2024-04-01 12:19] LABS: African American GFR (CKD) >90 (>60 ml/min/1.73 sqM); Anion Gap 6 mmol/L; Blood Urea Nitrogen 16 mg/dL (7-17); Calcium 9.7 mg/dL (8.4-10.2); Carbon Dioxide 28 mmol/L (22-30); Chloride 104 mmol/L (98-107); Glucose 80 mg/dL (74-99); Non-African American GFR(CKD) 82 (>60 ml/min/1.73 sqM); Potassium 4.7 mmol/L (3.5-5.1); Sodium 138 mmol/L (137-145)
== END 2024-04-01 12:57 | disposition home or self-care (01) ==
LOC: OR 05:39 → 4SSUR 09:45 → OR 04-01 12:57
PROVIDERS: ATTEND Orthopaedic Surgery
CPT/HCPCS: 72040; 72125; 80048; 85025; 86850; 86900; 86901